=== PATIENT | male | born 1985 | race Caucasian/White ===

== ENCOUNTER 2017-12-10 10:31 | Inpatient (IN) | payer BC, MEDICAID ==
--- NOTE | 2017-12-10 10:43 | EDPHY ---
H & P Stated Complaint: seizure - Medical/Surgical History Hx Asthma: No Hx Chronic Respiratory Disease: No Hx Diabetes: No Hx Cardiac Disease: No Hx Renal Disease: No Hx Cirrhosis: No Hx Alcoholism: No Hx HIV/AIDS: No Hx Splenectomy or Spleen Trauma: No Other PMH: none - Social History Smoking Status: Former smoker Time Seen by Provider: 12/10/17 10:43 HPI/ROS: CHIEF COMPLAINT: Seizure HISTORY OF PRESENT ILLNESS: This is a 31-year-old male with a history of alcohol abuse who comes to the emergency department by ambulance after apparently having a seizure in the grocery store. He has no recollection of the event. There are no witnesses available to provide history. His mother accompanies him and did not see what happened. He has a long history of alcohol abuse and was last in treatment at [facility] about 1 month ago. However, he relapsed and tells me that he has been drinking heavily--one 12 pack and one pt of vodka daily for the last few days, up until Sunday (today is Sunday). By his report, he has not had a drink since Sunday. He has been staying with his parents in an attempt to resume sobriety. He has been experiencing symptoms of withdrawal over this past weekend with tremors, vomiting, and abdominal discomfort. No hematemesis and no blood in his stool. REVIEW OF SYSTEMS: A ten point review of systems was performed and is negative with the exception of the items mentioned in the HPI. Past medical history:. Alcohol abuse Past surgical history: Negative. Social history: He is single. He does not smoke cigarettes. Alcohol abuse as above. He has used cocaine in the past, none recently. No IVDA. 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 Vital signs reviewed. Blood pressure 171/108, heart rate 118. Head: Four cm irregular laceration at the vertex with underlying hematoma. No palpable step-offs or skull fracture. Eyes: Pupils equal and round, no conjunctival injection, no discharge. Anicteric. ENT, Mouth: Mucous membranes are moist, no oropharyngeal erythema or edema. Neck: No lymphadenopathy, supple. No pain with palpation over the cervical spine. He arrived in a cervical collar which I removed at the time of my evaluation. Respiratory: Lungs are clear to auscultation; no wheezes, rales, or rhonchi. Cardiovascular: Tachycardic; no murmur, rub, or gallop. Gastrointestinal: Abdomen is soft and nontender, no masses or organomegaly, bowel sounds normal. Skin: Warm and dry, no rashes on exposed skin, normal color. No bruising. Back: Nontender to palpation over the thoracolumbar spine. No CVAT. Extremities: No lower extremity edema, no calf tenderness or swelling. Neurological: Alert and oriented. Moving all four extremities easily and equally. Cranial nerves II through XII are examined and are intact (visual acuity not tested). Strength is 5 over 5 bilaterally with testing of all major motor groups. Sensation is intact to light touch over all 4 extremities. Deep tendon reflexes are 2+ in the biceps and knees bilaterally. Psychiatric: Normal affect. (Lv Amado) Constitutional: Initial Vital Signs Temperature (C) 37.3 C 12/10/17 10:34 Heart Rate 118 H 12/10/17 10:34 Respiratory Rate 18 12/10/17 10:34 Blood Pressure 171/108 H 12/10/17 10:34 O2 Sat (%) 96 12/10/17 10:34 O2 Delivery Mode Room Air Allergies/Adverse Reactions: No Known Allergies Allergy (Unverified 12/10/17 10:35) Home Medications: Medication Instructions Recorded Carboxymethylcellulose 1% [Refresh 1 drop EACHEYE DAILY PRN 12/10/17 Celluvisc (*)] Ibuprofen [Motrin (*)] 200 mg PO Q4-6PRN PRN 12/10/17 diphenhydrAMINE [Benadryl 25 MG 25 mg PO HS PRN 12/10/17 (*)] Medical Decision Making - Diagnostics Imaging Results: Imaging Impressions Head CT 12/10/17 11:25 Impression: 1. There is a 4.1 x 1.2 x 5.3 cm scalp hematoma over the posterior vertex at the site of a skin laceration. 2. There is no acute intracranial abnormality identified, or CT explanation for the patient's seizure. If there is further clinical concern regarding the patient's symptoms, MR imaging is suggested, if not otherwise contraindicated. Findings were discussed with LV AMADO MD at 11:55, on 12/10/2017. Procedures: Procedure: Laceration repair. I was requested by Dr. Amado to perform wound closure I explained the indications, risks and benefits for both laceration repair and anesthetic administration. Verbal consent was obtained from the patient. The 4 cm laceration on the occiput was anesthetized using 0.5% bupivicaine with epinephrine. After anesthetic administered the patient was observed for a period of time and had no apparent adverse effects. The wound was cleaned, prepped, draped in normal sterile fashion and explored to its base. No foreign body seen, no foreign bodies palpated. There were no deep structures involved. The wound was repaired with 6 elio. The wound repair was simple. The procedure was performed by myself. Patient has been informed that scarring will occur, although efforts have been made to minimize this. (Alejandro Lugo) ED Course/Re-evaluation: 31-year-old male with history of alcohol abuse who has experience what is presumed to be his 1st alcohol withdrawal seizure. He is actively withdrawing in the emergency department. He received Ativan, total of 2 mg, and 2 L of normal saline in the emergency department. Head CT was performed and did not show signs of acute traumatic intracranial injury or skull fracture. Scalp laceration was repaired by the physician admin assistant. Surgical elio should be removed in 5-7 days. This patient is motivated to quit drinking. I am recommending medical treatment of his severe alcohol withdrawal. He is noted to have elevated liver functions/alcoholic hepatitis. His potassium is slightly low at 3.3, possibly related to vomiting over this past weekend. Platelets are low at 138,000. All of these abnormalities are likely related to his alcohol abuse. He is alert and appropriate in the emergency department, no delirium. He is being admitted to the step-down unit on the [facility] protocol. (Lv Amado) Differential Diagnosis: Seizure including but not limited to electrolyte abnormality, alcohol withdrawal , medication noncompliance, head injury, and breakthrough seizure. (Lv Amado) - Data Points Laboratory Results: Laboratory Results 12/10/17 10:20 12/10/17 10:20 12/10/17 12/10/17 12/10/17 10:20 10:20 10:20 WBC RBC Hgb Hct MCV MCH MCHC RDW Plt Count MPV Neut % (Auto) Lymph % (Auto) [place] % (Auto) Eos % (Auto) Baso % (Auto) Nucleat RBC Rel Count Absolute Neuts (auto) Absolute Lymphs (auto) Absolute Monos (auto) Absolute Eos (auto) Absolute Basos (auto) Absolute Nucleated RBC Immature Gran % Immature Gran # PT 13.5 SEC SEC (12.0-15.0) INR 1.01 (0.83-1.16) APTT 25.7 SEC SEC (23.0-38.0) Sodium 139 mEq/L mEq/L (135-145) Potassium 3.3 mEq/L L mEq/L (3.5-5.2) Chloride 98 mEq/L mEq/L (97-110) Carbon Dioxide 13 mEq/l L mEq/l (22-31) Anion Gap 28 mEq/L H mEq/L (8-16) BUN 14 mg/dL mg/dL (7-23) Creatinine 1.0 mg/dL mg/dL (0.7-1.3) Estimated GFR > 60 Glucose 100 mg/dL mg/dL (70-100) Calcium 9.4 mg/dL mg/dL (8.5-10.4) Phosphorus 3.3 mg/dL mg/dL (2.5-4.5) Magnesium 2.0 mg/dL mg/dL (1.6-2.3) Total Bilirubin 1.2 mg/dL mg/dL (0.1-1.4) Conjugated Bilirubin 0.5 mg/dL mg/dL (0.0-0.5) Unconjugated Bilirubin 0.7 mg/dL mg/dL (0.0-1.1) AST 155 IU/L H IU/L (17-59) ALT 165 IU/L H IU/L (21-72) Alkaline Phosphatase 105 IU/L IU/L (38-126) Total Protein 8.4 g/dL H g/dL (6.3-8.2) Albumin 5.1 g/dL H g/dL (3.5-5.0) Ethyl Alcohol < 10 mg/dL mg/dL (0-10) 12/10/17 10:20 WBC 11.15 10^3/uL H 10^3/uL (3.80-9.50) RBC 5.22 10^6/uL 10^6/uL (4.40-6.38) Hgb 16.0 g/dL g/dL (13.7-17.5) Hct 48.1 % % (40.0-51.0) MCV 92.1 fL fL (81.5-99.8) MCH 30.7 pg pg (27.9-34.1) MCHC 33.3 g/dL g/dL (32.4-36.7) RDW 14.3 % % (11.5-15.2) Plt Count 138 10^3/uL L 10^3/uL (150-400) MPV 10.8 fL fL (8.7-11.7) Neut % (Auto) 52.6 % % (39.3-74.2) Lymph % (Auto) 27.5 % % (15.0-45.0) [place] % (Auto) 17.0 % H % (4.5-13.0) Eos % (Auto) 1.3 % % (0.6-7.6) Baso % (Auto) 0.9 % % (0.3-1.7) Nucleat RBC Rel Count 0.0 % % (0.0-0.2) Absolute Neuts (auto) 5.85 10^3/uL 10^3/uL (1.70-6.50) Absolute Lymphs (auto) 3.07 10^3/uL H 10^3/uL (1.00-3.00) Absolute Monos (auto) 1.90 10^3/uL H 10^3/uL (0.30-0.80) Absolute Eos (auto) 0.15 10^3/uL 10^3/uL (0.03-0.40) Absolute Basos (auto) 0.10 10^3/uL 10^3/uL (0.02-0.10) Absolute Nucleated RBC 0.00 10^3/uL 10^3/uL (0-0.01) Immature Gran % 0.7 % % (0.0-1.1) Immature Gran # 0.08 10^3/uL 10^3/uL (0.00-0.10) PT INR APTT Sodium Potassium Chloride Carbon Dioxide Anion Gap BUN Creatinine Estimated GFR Glucose Calcium Phosphorus Magnesium Total Bilirubin Conjugated Bilirubin Unconjugated Bilirubin AST ALT Alkaline Phosphatase Total Protein Albumin Ethyl Alcohol Medications Given: Folic Acid (Folic Acid) 1 mg PO DAILY KEYLA Stop: 06/08/18 13:44 Last Admin: 12/10/17 14:29 Dose: 1 mg Famotidine/Sodium Chloride (Pepcid 20 Mg (Premix)) 50 mls @ 200 mls/hr IV Q12HRS [facility] Stop: 06/08/18 12:59 Last Admin: 12/10/17 14:25 Dose: 50 mls Thiamine HCl 500 mg/ Sodium (Chloride) 505 mls @ 505 mls/hr IV DAILY KEYLA Stop: 12/13/17 12:58 Last Admin: 12/10/17 14:29 Dose: 505 mls Nicotine (Nicoderm Cq) 14 mg TD DAILY KEYLA Stop: 06/08/18 13:44 Last Admin: 12/10/17 14:25 Dose: 14 mg Discontinued Medications Sodium Chloride (Ns) 1,000 mls @ 0 mls/hr IV EDNOW ONE; Wide Open PRN Reason: Protocol Stop: 12/10/17 11:26 Last Admin: 12/10/17 11:30 Dose: 1,000 mls Sodium Chloride (Ns) 1,000 mls @ 3,000 mls/hr IV ONCE ONE Stop: 12/10/17 13:58 Last Admin: 12/10/17 14:00 Dose: 1,000 mls Lorazepam (Ativan Injection) 1 mg IVP EDNOW ONE Stop: 12/10/17 11:23 Last Admin: 12/10/17 11:23 Dose: 1 mg Lorazepam (Ativan Injection) 1 mg IVP EDNOW ONE Stop: 12/10/17 11:27 Last Admin: 12/10/17 11:30 Dose: Not Given Lorazepam (Ativan Injection) 1 mg IVP EDNOW ONE Stop: 12/10/17 13:27 Last Admin: 12/10/17 14:00 Dose: 1 mg Potassium Chloride (Klor-Con) 30 meq PO ONCE ONE PRN Reason: Protocol Stop: 12/10/17 13:53 Last Admin: 12/10/17 14:25 Dose: 30 meq Departure - Departure Disposition: [facility] Acute Clinical Impression: Alcohol withdrawal seizure Qualifiers: Complication of substance-induced condition: uncomplicated Qualified Code(s): F10.230 - Alcohol dependence with withdrawal, uncomplicated Alcohol withdrawal Qualifiers: Complication of substance-induced condition: uncomplicated Qualified Code(s): F10.230 - Alcohol dependence with withdrawal, uncomplicated Scalp laceration Qualifiers: Encounter type: initial encounter Qualified Code(s): S01.01XA - Laceration without foreign body of scalp, initial encounter Condition: Fair
[2017-12-10] MEDS ORDERED: LORazepam 2 MG/ML INJ ONE (11:21)
[2017-12-10] MEDS ORDERED: LORazepam 2 MG/ML INJ IVP ONE ×3 (11:22→13:26)
[2017-12-10] MEDS ORDERED: NS 1,000 ML IV ONE ×2 (11:25→13:39)
[2017-12-10 11:34] LABS: PLATELET COUNT 138 10^3/uL (150-400)
[2017-12-10 11:46] LABS: INR 1.01 (0.83-1.16); PROTIME(PATIENT) 13.5 SEC (12.0-15.0)
[2017-12-10] MEDS ORDERED: ONDANSETRON DISINTEGRATING 4 MG TAB PO PRN (12:53)
[2017-12-10] MEDS ORDERED: ONDANSETRON 4 MG/2 ML VIAL IVP PRN (12:53)
[2017-12-10] MEDS ORDERED: ACETAMINOPHEN 325 MG TAB PO PRN (12:53)
[2017-12-10] MEDS ORDERED: LORazepam 2 MG/ML INJ IVP PRN (12:59)
[2017-12-10] MEDS ORDERED: NS 1,000 ML IV SCH (13:00)
[2017-12-10] MEDS ORDERED: DEXMEDETOMIDINE HCL 400 MCG in NS 100 ML IV SCH (13:00)
[2017-12-10] MEDS ORDERED: PROTOCOL POTASSIUM 1 DOSE MISC PRN (13:01)
[2017-12-10] MEDS ORDERED: CARBOXYMETHYLCELLULOSE 1% 0.4 ML DROPERETTE EACHEYE PRN (13:27)
[2017-12-10] MEDS ORDERED: POTASSIUM CL 10 MEQ TAB PO ONE ×2 (13:52→19:15)
--- NOTE | 2017-12-10 14:03 | GHP ---
[f rep st] HISTORY AND PHYSICAL DATE OF ADMISSION: 12/10/2017 CHIEF COMPLAINT: Seizure. HISTORY OF PRESENT ILLNESS: This is a 31-year-old male with a history of alcohol abuse, who presents after having had a seizure in the grocery store. The patient reports drinking typically 1-2 pints o f vodka a day in addition to a 12 pack of beer. He was treated in rehab program recently and then fe ll back into drinking a couple months ago. Again, was quite anxious to become sober and moved into is parent's home for support. He quit drinking cold turkey 48 hours ago, was walking through the [employer] [place] today and seized, hitting his head and developing a laceration of his scalp. He was broug ht by EMS to [facility] for care. In the ED endorsing some headache related to the h ead trauma. Denying any vision changes, endorsing some discomfort swallowing recently, endorsing a l ot of nausea and vomiting at home as he was going through the last 2 days of his withdrawal. Denies any hematemesis or coffee-grounds emesis. Endorses occasional constipation and/or diarrhea. Denies any melena or hematochezia. Denies any dysuria or hematuria. Has had a sore back that he localizes to his trapezius muscles. Denies any head trauma or falls prior to his seizure in the grocery store. Denies any other myalgias, fevers, rashes, or known sick contacts. PAST MEDICAL HISTORY: Alcohol abuse. No history of alcohol withdrawal seizures. SOCIAL HISTORY: Smokes a half a pack per day of cigarettes. Drinks 1-2 pints of vodka and a 12 pack of beer daily. Denies marijuana. Did previously have a problem using cocaine, but reports he has n ot used cocaine in the last month. Denies any history of IV drug use. FAMILY HISTORY: Negative for seizures. REVIEW OF SYSTEMS: A 10-point review of systems is negative with the exception of that reported in t he HPI. PHYSICAL EXAMINATION: VITAL SIGNS: Blood pressure is 138/94, heart rate 118, respiratory rate 18, s aturating 96% on room air, 37.3. GENERAL: This is a disheveled appearing young man, sitting up in b ed. HEENT: Notable for dry mucous membranes. Eye exam is negative for any icterus. CARDIAC: Audra ent is tachycardic but regular. PULMONARY: Has good respiratory effort, is clear to auscultation bi laterally. GASTROINTESTINAL: Positive bowel sounds. ABDOMEN: Soft and nontender. MUSCULOSKELETAL : Negative for any lower extremity edema. SKIN: Negative for any rashes. NEUROLOGIC: The patient is tremulous on my examination, has tongue fasciculations, but no asterixis. PSYCHIATRIC: He is pl easant and cooperative on interview and examination. DATA: White count 11.1, hematocrit 48.1, platelets of 138. INR of 1.01. Potassium of 3.3, creatini ne 1.0, AST 155, ALT 165, anion gap 28, bicarb 13. Noncontrast CT of the head which I personally rev iewed and interpreted, shows a scalp hematoma with no intracranial abnormality. ASSESSMENT AND PLAN: This is a 31-year-old male with a history of alcohol abuse presenting with seiz ure. 1. Acute alcohol withdrawal seizure. Patient received Ativan pushes in the emergency department. H is mental status is now alert and oriented x3. He has no preceding history of seizure or family hist ory of seizure. Will aggressively treat his alcohol withdrawal to avoid any future neurologic episod es. I do not think there is any need for initiating an antiepileptic outside the CIWA protocol. 2. Severe alcohol withdrawal with seizure. We will place the patient on the CIWA protocol with IV A tivan. If he does not improve over the course of the next 6 hours we will transition to a Precedex d rip with scheduled benzodiazepines. Have ordered seizure assessments in addition to the normal CIWA protocol. 3. Severe alcohol abuse. The patient will receive IV thiamine and folic acid. He will need [facility] es for ongoing sobriety after stabilization from ICU. 4. Anion gap metabolic acidosis presumed secondary to alcohol and starvation ketosis. We will fluid resuscitate and recheck in the morning. 5. Hypokalemia presumed secondary to nausea and vomiting. We will replete per protocol. Treat with Zofran as needed for any ongoing nausea with his withdrawal. 6. Thrombocytopenia suspect secondary to alcohol toxicity of the bone marrow. Will follow the patie nt's counts. 7. Alcohol-related hepatitis. The patient has minimal elevation in his liver function tests at pres entation with a normal INR. Can simply follow while inpatient. Prophylaxis with Lovenox. DIET: Regular. DISPOSITION: I expect greater than 2 midnights as patient is presenting with seizure secondary to al cohol withdrawal requiring IV benzodiazepines and critical care monitoring for safety. I have discus sed the case with the emergency room physician. Patient will be triaged to the stepdown unit for car e. /[id number]/MODL
[2017-12-10] MEDS: NICOTINE 14 MG/24 HR PATCH TD SCH (14:25)
[2017-12-10] MEDS: FAMOTIDINE 20 MG/NACL 50 ML IV SCH ×2 (14:25→19:48)
[2017-12-10] MEDS: FOLIC ACID 1 MG TAB PO SCH (14:29)
[2017-12-10] MEDS: THIAMINE HCL 500 MG in NS 500 ML IV SCH (14:29)
--- NOTE | 2017-12-10 16:29 | PDMN ---
Medical Necessity Medical necessity: Patient meets inpatient criteria per physician note and [facility] M -595 Substance-Related Disorders (leukocytosis/WBC > 11,000; metabolic acidosis/ anion gap 28; elevated liver enzymes/alcohol-related hepatitis; history of alcohol abuse, last drink 48 hours prior, witnessed seizure; ongoing tachycardia in 110's after initial ED care; anticipated LOS > 2 midnights for CIWA protocol with IV Ativan, IV hydration, critical care monitoring for safety. )
[2017-12-10] MEDS: LORazepam 1 MG TAB PO PRN (20:58)
[2017-12-11] MEDS: LORazepam 1 MG TAB PO PRN ×2 (06:21→11:39)
[2017-12-11] MEDS ORDERED: POTASSIUM CL 10 MEQ TAB PO ONE ×2 (07:02→18:53)
[2017-12-11] MEDS: FOLIC ACID 1 MG TAB PO SCH (08:18)
[2017-12-11] MEDS: ENOXAPARIN 40 MG/0.4 ML SYR SC SCH (08:18)
[2017-12-11] MEDS: THIAMINE HCL 500 MG in NS 500 ML IV SCH (08:18)
[2017-12-11] MEDS: NICOTINE 14 MG/24 HR PATCH TD SCH (08:18)
[2017-12-11] MEDS: FAMOTIDINE 20 MG TAB PO SCH ×2 (08:19→19:15)
--- NOTE | 2017-12-11 13:02 | HOSPPROG ---
Hospitalist Progress Note Assessment/Plan: # Acute alcohol withdrawal- patient less tremulous this a.m.- no seizures Telemetry (personally reviewed and interpreted) sinus tachycardia in the 120 -oxygen saturations 98% on room air - continue IV thiamine - continue aggressive CIWA treatment - patient will discharge back to his parent's home when stable # acute seizure-presumed secondary to alcohol withdrawal No recurrence overnight on treatment with benzodiazepines - continue to monitor # anion gap metabolic acidosis- secondary to starvation ketosis with alcohol abuse- anion gap 28-> 10 Resolved with fluid resuscitation overnight patient remains tremulous and tachycardic should continue with CIWA treatment today # 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- no clinical bleeding # prophylaxis Lovenox # diet regular # disposition greater than 2 midnights as the patient remains tachycardic requiring ongoing CIWA I have discussed the case with the RN- patient remains tremulous and tachycardic should continue CIWA treatment today Subjective: Feels less anxious Objective: Vital Signs Temp Pulse Resp BP Pulse Ox 37.4 C 116 H 16 122/86 H 100 12/11/17 11:34 12/11/17 11:34 12/11/17 11:34 12/11/17 11:34 12/11/17 11:34 Laboratory Results 12/11/17 05:06 12/10/17 12/11/17 12/12/17 05:59 05:59 05:59 Intake Total 7924.6 1999 Output Total 2850 Balance 5074.6 1999 PT 13.5 SEC (12.0-15.0) 12/10/17 10:20 INR 1.01 (0.83-1.16) 12/10/17 10:20 - Physical Exam Constitutional: no apparent distress Eyes: anicteric sclera Ears, Nose, Mouth, Throat: dry mucous membranes Cardiovascular: tachycardia Respiratory: no respiratory distress Gastrointestinal: normoactive bowel sounds Genitourinary: no bladder fullness Skin: warm Musculoskeletal: No asymmetric calves Neurologic: AAOx3, No asterixes Psychiatric: not anxious Lymph, Heme, Immunologic: no cervical LAD ICD10 Worksheet Patient Problems: Problems Problem Status Onset Alcohol withdrawal Acute Alcohol withdrawal seizure Acute Scalp laceration Acute
--- NOTE | 2017-12-11 14:42 | ASMTLACE ---
JERONIMO Acuity / Level of Answers: Yes Care: Did the patient have an inpatient admission? Comorbidities - select Answers: Other Notes: ETOH W/D; SZ all that apply # of Emergency department Answers: 1-2 visits in the last 6 months Social determinants Answers: History of substance abuse (ETOH, street drugs, prescription drugs, etc.) Score: 8 Date Signed: 12/11/2017 02:41 PM Electronically Signed By:Rose Jolly LCSW
--- NOTE | 2017-12-11 14:50 | ASMTCMCOM ---
CM Note CM Note Notes: 31yr old male admitted for ETOH W/D, SZ. Patient voluntarily came to [facility] to WD from ETOH. He reports that he has spent the last 3mos in an in-pt ETOH tx facility. He then went on an ETOH binge. He reports that he lives in [place] and connected to the [facility] [place] area. He has a sponsor and thinking about getting a therapist. 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 His parents live in [place] and very supportive of his sobriety. This CM has given patient ETOH Tx res in the [facility] area. Date Signed: 12/11/2017 02:49 PM Electronically Signed By:Rose Jolly LCSW
[2017-12-12] MEDS ORDERED: POTASSIUM CL 10 MEQ TAB PO ONE (03:59)
[2017-12-12 08:53] VITALS: BP 125/92
[2017-12-12] MEDS ORDERED: chlordiazePOXIDE 25 MG CAP PO ONE (09:02)
[2017-12-12] MEDS: NICOTINE 14 MG/24 HR PATCH TD SCH (09:04)
[2017-12-12] MEDS: FAMOTIDINE 20 MG TAB PO SCH (09:05)
[2017-12-12] MEDS: FOLIC ACID 1 MG TAB PO SCH (09:05)
--- NOTE | 2017-12-12 09:06 | HOSPPROG ---
Hospitalist Progress Note Assessment/Plan: 31 yo M w alcohol withdrawal seizure home today see dc summary Subjective: feels much better. no tremor. ready for dc Objective: Vital Signs Temp Pulse Resp BP Pulse Ox 37.1 C 106 H 18 125/92 H 98 12/12/17 08:00 12/12/17 08:00 12/12/17 08:00 12/12/17 08:00 12/12/17 08:00 Laboratory Results 12/12/17 03:00 12/12/17 03:00 12/11/17 12/12/17 12/13/17 05:59 05:59 05:59 Intake Total 7924.6 3300 Output Total 2850 200 Balance 5074.6 3100 PT 13.5 SEC (12.0-15.0) 12/10/17 10:20 INR 1.01 (0.83-1.16) 12/10/17 10:20 - Physical Exam Constitutional: no apparent distress, appears nourished Eyes: PERRL, anicteric sclera Ears, Nose, Mouth, Throat: moist mucous membranes, hearing normal Cardiovascular: regular rate and rhythym, no murmur, rub, or gallop Respiratory: no respiratory distress, no rales or rhonchi Gastrointestinal: normoactive bowel sounds, soft, non-tender abdomen Genitourinary: no bladder fullness Skin: warm, normal color Musculoskeletal: full muscle strength, no muscle tenderness Neurologic: AAOx3 ICD10 Worksheet Patient Problems: Problems Problem Status Onset Alcohol withdrawal Acute Alcohol withdrawal seizure Acute Scalp laceration Acute
[2017-12-12] MEDS: THIAMINE HCL 500 MG in NS 500 ML IV SCH (09:07)
[2017-12-12] MEDS: ENOXAPARIN 40 MG/0.4 ML SYR SC SCH (09:08)
--- NOTE | 2017-12-12 09:41 | GDS ---
[f rep st] DISCHARGE SUMMARY DISCHARGE DIAGNOSIS: 1. Alcohol withdrawal seizure. 2. Acute alcohol withdrawal. 3. Alcohol use disorder and alcoholism. 4. Hypokalemia. Please see the admission history and physical by Dr. Maryjane Marte. The patient presented with a se [place] after voluntary cessation of alcohol. He had recentl y been to rehab and had fallen off and binged for a couple of weeks. He received CIWA protocol, thia min, Ativan, electrolyte repletion. His anion gap metabolic acidosis resolved. This was felt to be secondary to ketosis. On the 3rd hospital day, the patient was alert and oriented without tremor, wit hout nausea or vomiting, tolerating p.o.'s and anxious for discharge. He has currently moved back in with his parents and has a support system in place. Greater than 30 minutes spent on this discharge. /[id number]/MODL
[2017-12-15] MEDS ORDERED: LORazepam 2 MG/ML INJ IVP SCH (13:00)
== END 2017-12-12 10:00 | disposition home or self-care (01) | DRG 897 ==
LOC: EDUNIT# → F2N 14:13
PROVIDERS: ADMIT Hospitalist; ATTEND Hospitalist
DX: F10.231 Alcohol dependence with withdrawal delirium (principal); E87.2 Acidosis; S01.01XA Laceration without foreign body of scalp, initial encounter; E87.6 Hypokalemia; Y92.512 Supermarket, store or market as the place of occurrence of the external cause; E88.89 Other specified metabolic disorders; K70.10 Alcoholic hepatitis without ascites; Z72.0 Tobacco use
CPT/HCPCS: 80307; 92610-GN; 96374; 97161-GP; G0480; J1650; J2060; J3411

== ENCOUNTER 2018-04-15 22:49 | Emergency (ER) | payer MEDICAID, OTHER ==
[2018-04-15 23:08] VITALS: BP 119/79
--- NOTE | 2018-04-15 23:19 | EDPHY ---
H & P Stated Complaint: requesting detox from [facility]. 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 Time Seen by Provider: 04/15/18 23:08 HPI/ROS: CHIEF COMPLAINT: "I just need to get sober" HISTORY OF PRESENT ILLNESS: 32-year-old male history of alcoholism, last drink of alcohol 1 hr ago, in the ER with his female partner requesting "to get sober ". He is unable to specify specifically how that would happen. He has been admitted to [facility] previously for acute alcohol withdrawal and alcohol withdrawal seizure. He is unable to specify whether he is interested in alcohol rehab, benzodiazepines. He repeatedly states "just get me sober". His partner is concerned that he may develop alcohol withdrawal seizure or delirium tremens. REVIEW OF SYSTEMS: A ten point review of systems was performed and is negative with the exception of the items mentioned in the HPI PAST MEDICAL & SURGICAL HISTORY: History of alcoholism SOCIAL HISTORY: Last drink of alcohol 1 hr ago PHYSICAL EXAM (Prior to examination, patient consented to physical exam, hands were washed and my usual and customary physical exam procedures followed) 1) GENERAL: Well-developed, well-nourished, alert and oriented. Answering questions appropriately. Stable steady gait.. 2) HEAD: Normocephalic 3) HEENT: Sclera anicteric. 4) NECK: Full range of motion, no meningeal signs. 5) LUNGS: Breathing comfortably 6) HEART: No cyanotic discoloration 7) ABDOMEN: No guarding, 8) MUSCULOSKELETAL: Moving all extremities. 9) BACK: No visual or palpable abnormality. 10) SKIN: No rash, no petechiae. 11) Psychiatric: Patient is oriented X 3, there is no agitation. DIFFERENTIAL DIAGNOSIS: In no particular order including but not limited to acute alcohol intoxication, alcohol withdrawal, alcohol withdrawal seizure - Personal History Current Tetanus/Diphtheria Vaccine: Unsure Current Tetanus Diphtheria and Acellular Pertussis (TDAP): Unsure - Medical/Surgical History Hx Asthma: No Hx Chronic Respiratory Disease: No Hx Diabetes: No Hx Cardiac Disease: No Hx Renal Disease: No Hx Cirrhosis: No Hx Alcoholism: No Hx HIV/AIDS: No Hx Splenectomy or Spleen Trauma: No Other PMH: etoh abuse, etoh w/d sz - Social History Smoking Status: Former smoker Constitutional: Initial Vital Signs Temperature (C) 36.8 C 04/15/18 23:04 Heart Rate 125 H 04/15/18 23:04 Respiratory Rate 16 04/15/18 23:04 Blood Pressure 119/79 04/15/18 23:04 O2 Sat (%) 93 04/15/18 23:04 O2 Delivery Mode Room Air Allergies/Adverse Reactions: No Known Allergies Allergy (Verified 04/15/18 23:03) Home Medications: Medication Instructions Recorded NK [No Known Home Meds] 04/15/18 Medical Decision Making ED Course/Re-evaluation: 11:18 p.m.: Patient is tachycardic, is in the ER with his partner. I have offered benzodiazepine, IV hydration and then possible [facility] if he is medically stable. He has been informed that if he decides to suddenly stop drinking alcohol he is at risk of acute alcohol withdrawal including but not limited to alcohol withdrawal seizures, alcoholic hallucinosis, delirium tremens. He would like some time in private to speak with his partner. 11:21 p.m.: Informed by nurse that patient and his partner have walked out of the emergency department. They did not receive aftercare instructions. They did not receive AMA instructions. I did in not have option to speak with them as they walked out of the ER. I saw this patient independently based on established practice protocols. Care of patient under supervision of secondary supervising physician Dr Nevarez . Departure - Departure Disposition: Against Medical Advice Clinical Impression: Alcohol abuse Condition: Fair Referrals: NONE *PRIMARY CARE P,. [Primary Care Provider] - As per Instructions
== END 2018-04-15 23:22 | disposition left against medical advice (07) ==
DX: F10.20 Alcohol dependence, uncomplicated (principal); Z87.891 Personal history of nicotine dependence

== ENCOUNTER 2019-02-15 14:17 | Emergency (ER) | payer OTHER, MEDICAID | END 2019-02-15 15:04 | disposition left against medical advice (07) ==